=== PATIENT | female | born 1945 | race Caucasian/White ===

== ENCOUNTER 2018-02-18 05:07 | Day surgery (SDC) | payer OTHER ==
[~2018-02-18 05:07] MED LIST: BRAIN MIGHT-DH1 EACH PO; COCONUT OIL100 GM MC; LASIX20 MG PO; OMEGA 3 FISH OI1 CAP PO; ULTRACET PO; VIT C-BIOFLAVO1 EACH PO; WOMAN'S LAXATIVE5 M1 PO; [UNRECOGNIZED DRUG - OTHER]; [UNRECOGNIZED DRUG - OTHER]; [UNRECOGNIZED DRUG - OTHER] TP
== END 2018-02-18 10:09 | disposition home or self-care (01) ==
LOC: CIR.AMB 05:07
DX: M65.841 Other synovitis and tenosynovitis, right hand (principal)

== ENCOUNTER 2019-03-03 14:59 | Outpatient (CLI) | payer OTHER | END 2019-03-03 15:28 | disposition home or self-care (01) | LOC: NUCLEAR 14:59 | DX: I65.23 Occlusion and stenosis of bilateral carotid arteries (principal) ==